=== PATIENT | male | born 1975 | race African-American/Black ===

== ENCOUNTER 2018-05-20 05:14 | Emergency (ER) | payer SELFPAY ==
[~2018-05-20] VITALS: Ht 182.9 cm; Wt 90.0 kg
[2018-05-20 05:15] VITALS: BP 165/91
[2018-05-20] MEDS ORDERED: DEXAMETHASONE 4 MG TABLET ONE (05:58)
[2018-05-20] MEDS ORDERED: DEXAMETHASONE 4 MG TABLET PO ONE (06:00)
== END 2018-05-20 06:11 | disposition home or self-care (01) ==
LOC: ED 06:00
DX: H66.001 Acute suppurative otitis media without spontaneous rupture of ear drum, right ear (principal); K08.89 Other specified disorders of teeth and supporting structures
CPT/HCPCS: 99283